=== PATIENT | male | born 1995 | race Caucasian/White ===

== ENCOUNTER 2021-11-22 09:52 | Emergency (ER) | payer OTHER, MEDICAID, SELFPAY ==
--- NOTE | 2021-11-22 10:25 | ED.GENADULT ---
HPI - General Adult General Chief complaint: Abdominal Pain Stated complaint: sharp epigastric pain x hours, vomiting Time Seen by Provider: 11/22/21 09:54 History of Present Illness HPI narrative: 26-year-old male with prior history of gallbladder issues presenting the emergency department for evaluation of epigastric pain that started last night at approximately 3 AM. Patient states that the pain causes him to have nausea. Patient denies any radiation of the pain. Patient states that the pain stays at the epigastrium. Patient denies any associated chest pain or shortness of breath. Patient denies any signs of alcohol use. Patient states he does not take ibuprofen. Patient denies any prior history of GERD. Related Data Home Medications Medication Instructions Recorded Confirmed bupropion HCl 300 mg 24 hr tablet, mg PO 11/22/21 extended release ergocalciferol (vitamin D2) 1,250 11/22/21 mcg (50,000 unit) capsule fluoxetine 20 mg tablet mg 11/22/21 losartan 50 mg tablet mg 11/22/21 11/22/21 Allergies Allergy/AdvReac Type Severity Reaction Status Date / Time No Known Allergies Allergy Verified 05/19/17 17:01 Review of Systems Review of Systems: CONSTITUTIONAL: Denies fever, chills, or sweats. EYES: Denies visual changes, redness, or discharge. ENT: Denies rhinorrhea, congestion, sore throat, or otalgia. CARDIOVASCULAR: Epigastric chest pain RESPIRATORY: Denies cough or dyspnea. GASTROINTESTINAL: See HPI GENITOURINARY: Denies dysuria or hematuria. SKIN: Denies rash or itching. MUSCULOSKELETAL: Denies back pain, joint pain, or myalgia. NEUROLOGIC: Denies headache, numbness, or weakness. Exam Narrative: APPEARANCE: Well appearing, no pain, no distress, well-nourished. HEAD: normocephalic, atraumatic. EYES: PERRLA/EOMI, conjunctivae clear. NOSE: Normal no drainage NECK: Supple. No adenopathy, no masses. RESPIRATORY: Airway patent, respirations nonlabored. Clear to auscultation bilaterally, no rales, rhonchi, wheezing. CARDIOVASCULAR: Regular rate and rhythm without murmurs rubs or gallops. ABDOMINAL: Soft, nontender, nondistended, normal bowel sounds MUSCULOSKELETAL: Moves all extremities. Strength/ROM intact, No edema, No calf tenderness. NEURO: Alert. Cranial nerves II through XII intact. Grossly intact SKIN: Warm, dry. Normal Color Course Course Emergency Course: Patient reports he did have improvement of his symptoms with a GI cocktail. Patient was also treated with Protonix IV. Patient was educated on diet control, Prilosec and importance of close follow-up with GI. All question concerns were addressed. Vital Signs Vital signs: Vital Signs Temperature 97.6 F 11/22/21 10:39 Pulse Rate 87 11/22/21 10:39 Respiratory Rate 16 11/22/21 10:39 Blood Pressure 151/91 H 11/22/21 10:39 Pulse Oximetry 100 11/22/21 10:39 Temperature 97.6 F 11/22/21 10:39 Pulse Rate 61 11/22/21 12:55 Respiratory Rate 18 11/22/21 12:55 Blood Pressure 134/86 11/22/21 12:55 Pulse Oximetry 99 11/22/21 12:55 Medical Decision Making Vital Signs Vital Signs: Vital Signs Temperature 97.6 F 11/22/21 10:39 Pulse Rate 87 11/22/21 10:39 Respiratory Rate 16 11/22/21 10:39 Blood Pressure 151/91 H 11/22/21 10:39 Pulse Oximetry 100 11/22/21 10:39 Temperature 97.6 F 11/22/21 10:39 Pulse Rate 61 11/22/21 12:55 Respiratory Rate 18 11/22/21 12:55 Blood Pressure 134/86 11/22/21 12:55 Pulse Oximetry 99 11/22/21 12:55 Lab Data Lab results reviewed: Yes I reviewed the patient's lab results. Result diagrams: 11/22/21 10:45 11/22/21 10:45 Labs: Lab Results 11/22/21 11/22/21 11/22/21 Range/Units 10:45 10:45 10:45 WBC 10.4 H (4.5-10.0) K/mm3 RBC 5.19 (4.6-6.20) M/mm3 Hgb 15.2 (14.0-18.0) g/dL Hct 43.6 (42.0-52.0) % MCV 84.0 (80-100) fl MCH 29.3 (26-34) pg MCHC 34.9 (32-36) g/dl
[2021-11-22 10:39] VITALS: BP 151/91; PULSE 87; RESP 16; TEMP 36.4; O2SAT 100
[2021-11-22] MEDS: BELLADONNA ALK/PHENOB ELIX 10 ML, MAG HYDROX/ALUMINUM HYD/SIMETH 30 ML, LIDOCAINE HCL 2... PO (10:56)
[2021-11-22] MEDS: ONDANSETRON INJ 4 MG/2 ML VIAL IV PUSH (10:57)
[2021-11-22 11:02] LABS: Basophils Absolute Auto 0.1 K/mm3 (0.0-0.1); Basophils Percent Auto 0.6 % (0.2-1.2); Eosinophils Absolute Auto 0.2 K/mm3 (0-0.3); Eosinophils Percent Auto 1.5 % (0-4.4); Hematocrit 43.6 % (42.0-52.0); Hemoglobin 15.2 g/dL (14.0-18.0); Immature Granulocyte Absolute 0.04 K/mm3 (0.00-0.031); Immature Granulocyte Percent A 0.4 % (0-0.5); Lymphocytes Absolute Auto 1.76 K/mm3 (0.9-3.2); Mean Corpuscular HGB Conc 34.9 g/dl (32-36); Mean Corpuscular Hemoglobin 29.3 pg (26-34); Mean Platelet Volume 10.3 fl (7.4-10.4); Monocytes Absolute Auto 0.6 K/mm3 (0.1-0.6); Neutrophils Absolute Auto 7.7 K/mm3 (1.3-6.7); Neutrophils Percent Auto 74.5 % (45.5-73.1); Platelet Count Result 285 k/mm3 (150-375); Red Blood Count 5.19 M/mm3 (4.6-6.20); Red Cell Distribution Width 13.3 % (11.5-14.5); White Blood Count 10.4 K/mm3 (4.5-10.0)
[2021-11-22 11:15] LABS: Alanine Aminotransferase 52 U/L (6-50); Albumin Level 4.9 g/dL (3.5-5.1); Alkaline Phosphatase 70 U/L (38-126); Anion Gap 11 mmol/L (8-16); Aspartate Amino Transferase 35 U/L (17-59); Bilirubin,Total 0.6 mg/dL (0.2-1.3); Blood Urea Nitrogen 10 mg/dL (9-20); Calcium 9.5 mg/dL (8.4-10.2); Carbon Dioxide 24 mmol/L (22-30); Chloride 103 mmol/L (98-107); Estimated CRCL calculation 178 ml/min; Estimated Glomerular Filt Rate > 60; Glucose 111 mg/dL (65-110); Lipase 35 U/L (23-300); Potassium 4.1 mmol/L (3.4-5.0); Sodium 138 mmol/L (137-145)
[2021-11-22 11:16] LABS: Lactic Acid Reflex 0.9 mmol/L (0.7-2.0)
[2021-11-22] MEDS: MAG HYDROX/AL HYDROX/SIMETH 30 ML UDC PO (12:53)
[2021-11-22] MEDS: PANTOPRAZOLE SODIUM IV 40 MG VIAL IV PUSH (12:53)
[2021-11-22 12:55] VITALS: BP 134/86; PULSE 61; RESP 18; O2SAT 99
== END 2021-11-22 12:56 | disposition home or self-care (01) ==
PROVIDERS: Emergency Provider Emergency Medicine; PCP Nurse Practitioner Family
DX: R10.13 Epigastric pain (principal)
CPT/HCPCS: 36415; 80053; 83605; 83690; 85025; 96374; 96375; 99284; A9270; C9113; J2405

== ENCOUNTER 2022-01-03 10:03 | Outpatient (CLI) | payer OTHER, SELFPAY ==
--- NOTE | ~2022-01-03 | US_ITS ---
EXAMINATION: US abdomen complete DATE: 01/03/2022 10:39 INDICATION: Epigastric pain TECHNIQUE: Multiple grayscale and Doppler ultrasound images of the abdomen were obtained. COMPARISON: CT, 10/14/2018 FINDINGS: Bowel gas obscures visualization of the pancreas. The liver is normal with normal echogenic ity and echotexture. No surface nodularity. Normal hepatopetal flow in the main portal vein. The gall bladder is normal with no abnormal wall thickening, pericholecystic fluid or stones. The normal commo n bile duct measures 2 mm. There was no sonographic Bear sign. The visualized portions of the aorta and inferior vena cava are normal. The right kidney measures 12.1 x 6.2 x 7.1 cm. The left kidney measures 11.3 x 5.4 x 6.3 cm. The kidn eys demonstrate normal parenchymal echogenicity. There is no hydronephrosis. The spleen is normal in appearance and measures 13.4 cm. IMPRESSION: 1. No sonographic correlate for the patient's symptoms. Reviewed, dictated and finalized at location A.
== END 2022-01-03 10:04 | disposition home or self-care (01) ==
PROVIDERS: PCP Nurse Practitioner Family; Visit Provider Internal Medicine Gastroenterology
DX: R10.13 Epigastric pain (principal)
CPT/HCPCS: 76700

== ENCOUNTER 2024-12-03 10:43 | Outpatient (CLI) | payer BC, MEDICAID, SELFPAY ==
--- OUTSIDE RECORDS SUMMARY | 2024-12-03 11:24 | XMS_ITS | Clinical Summary ---
Author Organization [facility] Address [address] [place] [address] Care Team Providers Care Cement Crusher Operator Name Role Phone Leatha Shanks APRNALINE Primary Care Provider [phone] Source Comments [facility],non-owned Affiliates and Associated Physician Practices is amultiple site organization consisting of ambulatory clinics and hospital sitesin [place], [place], [place] and [place]. This disclosure is being madepursuant to the Care Everywhere program and may not contain all information available regarding this patient. Last updated 17.[facility] Allergies No known active allergies Medications * Be aware that medications may not be up to date on this document. Alwaysverify current medications with the patient. vitamin D, ergocalciferol, (DRISDOL) 1.25 MG (96089 UT) capsule TK 1 C PO Q WK 0 Active Fenofibrate 134 MG CAPS TK 1 C PO QD 0 Active losartan (COZAAR) 50 MG tablet TK 1 T PO QD 0 Active methylPREDNISolo ne (MEDROL DOSEPAK) 4 MG tabletIndication s:Arthralgia, unspecified joint,Positive MARCUS (antinuclear antibody) Take by mouth as directed Take as directed by mouth per package instructions. 1 Each 1 Active Active Problems Problem Noted Date Diagnosed Date Steatosis of liver 02/23/2020 Right upper quadrant pain 02/23/2020 Elevated liver enzymes 02/23/2020 Morbid obesity 10/19/2019 Overview (02/23/2020): Last Assessment & Plan: Discussed gradual weight loss after discharge from hospital with pt Family History Medical History Relation Name Comments Autism Spectrum Disorder Brother 1 CAD (Coronary Artery Disease) Father Arthritis - Rheumatoid Mother Diabetes - Type 2 Mother Arthritis - Rheumatoid Sister 1 Arthritis - Rheumatoid Sister 2 Relation Name Status Comments Brother 1 Alive Brother 2 Alive Brother 3 Alive Brother 4 Alive Brother 5 Alive Brother 6 Alive Father Alive Mother Alive Sister 1 Alive Sister 2 Alive Social History Tobacco Use Types Packs/Day Years Used Date Smoking Tobacco: Never Smokeless Tobacco: Current Chew Alcohol Use Standard Drinks/Week Comments Yes 0 (1 standard drink = 0.6 oz pur e alcohol) 6-8 cans/week Sex and Gender Information Value Date Recorded Sex Assigned at Not on file Legal Sex Male 1:38 PM CDT Gender Identity Not on file Sexual Orientation Not on file Last Filed Vital Signs Vital Sign Reading Time Taken Comments Blood Pressure 128/72 04/26/2020 10:47 AM HEALTH POLICY MANAGER Pulse 72 04/26/2020 10:47 AM HEALTH POLICY MANAGER Temperature 36.6 C (97.9 F) 04/26/2020 10:47 AM HEALTH POLICY MANAGER Respiratory Rate - - Oxygen Saturation 100% 02/23/2020 1:54 PM HEALTH POLICY MANAGER Inhaled Oxygen Concentration - - Weight 148.3 kg (327 lb) 04/26/2020 10:47 AM HEALTH POLICY MANAGER Height 172.7 cm (5' 8) 04/26/2020 10:47 AM HEALTH POLICY MANAGER Body Mass Index 49.72 04/26/2020 10:47 AM HEALTH POLICY MANAGER Plan of Treatment Health Maintenance Due Date Last Done Comments HIV SCREENING 2010 HEPATITIS C SCREENING 01/08/2013 DTAP/TDAP/TD VACCINES (1 - Tdap) 2014 HEPATITIS B VACCINE (1 of 3 - 19+ 3-dose series) 2014 HPV VACCINE (1 - 3-dose SCDM series) 2022 DEPRESSION SCREENING 03/18/2024 COVID-19 VACCINE (1 - 2023-2 5 season) 2024 INFLUENZA VACCINE (#1) 2024 ZOSTER VACCINE (1 of 2) 2045 HIB VACCINE Aged Out No longer eligi ble based on patient's age to complete this topic MENINGOCOCCAL (Group B) VACC INE SHARED DECISION-MAKING Aged Out No longer eligibl e based on patient's age to complete this topic MENINGOCOCCAL GROUPS A/C/Y/W VACCINE Aged Out No longer eligible b ased on patient's age to complete this topic PNEUMOCOCCAL VACCINE Aged Out No long er eligible based on patient's age to complete this topic Goals Goal Patient Goal Type Associated Problems Recent Progress Patient-Stated? Author Medication Management General On track( 020 4:08 PM [facility]) Milvia Nuñez RN Note: Expected end date: ongoing Interventions: Take all medications as prescribed Let your doctor know right away about any changes in your medications Make sure to request a refill of your medication at least one week prior to your last dose Insurance [facility] Member Subscriber Plan / Payer (Ef fective for All Dates) Name:Spears, Kevin Relation to Subscriber:Self Name:KEVIN SPEARS Payer ID:Not on file Group ID:Not on file Type:Medicaid [place] Address: [address] Care Teams Cement Crusher Operator Relationship Specialty Start Date End Date Leatha Shanks APRN-CNP [id number] [phone] PCP - General 11/09/19
[2024-12-03 11:32] LABS: Hematocrit 41.4 % (42.0-52.0); Hemoglobin 14.4 g/dL (14.0-18.0); Mean Corpuscular HGB Conc 34.8 g/dl (32-36); Mean Corpuscular Hemoglobin 29.4 pg (26-34); Mean Corpuscular Volume 84.7 fl (80-100); Platelet Count Result 266 k/mm3 (150-375); Red Blood Count 4.89 M/mm3 (4.6-6.20); White Blood Count 8.8 K/mm3 (4.5-10.0)
[2024-12-03 11:52] LABS: Alanine Aminotransferase 71 U/L (6-50); Albumin Level 4.6 g/dL (3.5-5.1); Alkaline Phosphatase 54 U/L (38-126); Anion Gap 6 mmol/L (4-12); Aspartate Amino Transferase 47 U/L (17-59); Bilirubin,Total 0.6 mg/dL (0.2-1.3); Blood Urea Nitrogen 13 mg/dL (9-20); Calcium 9.0 mg/dL (8.4-10.2); Carbon Dioxide 27 mmol/L (22-30); Chloride 106 mmol/L (98-107); Cholesterol 235 mg/dL (0-200); Estimated Glomerular Filt Rate > 60; Glucose 101 mg/dL (65-110); HDL Direct 35 mg/dL; Potassium 4.1 mmol/L (3.4-5.0); Sodium 139 mmol/L (137-145); Total Protein 8.0 g/dL (6.3-8.2); Triglycerides 192 mg/dL (<150)
[2024-12-03 12:11] LABS: Hemoglobin A1C 5.0 % (<5.7)
[2024-12-03 12:25] LABS: Thyroid Stimulating Hormone Reflex 2.720 uIU/mL (0.465-4.68)
[2024-12-03 12:34] LABS: MALB Creatinine Ratio 5.8 mg/g (0-30)
== END 2024-12-03 10:44 | disposition home or self-care (01) ==
PROVIDERS: PCP Nurse Practitioner Family; Visit Provider Nurse Practitioner Family
DX: E78.5 Hyperlipidemia, unspecified (principal); I10 Essential (primary) hypertension; E66.01 Morbid (severe) obesity due to excess calories; Z68.43 Body mass index [BMI] 50.0-59.9, adult; J45.909 Unspecified asthma, uncomplicated; Z76.89 Persons encountering health services in other specified circumstances; Z00.00 Encounter for general adult medical examination without abnormal findings; E11.9 Type 2 diabetes mellitus without complications; E55.9 Vitamin D deficiency, unspecified
CPT/HCPCS: 36415; 80053; 80061; 82043; 82306; 83036; 84443; 85027